=== PATIENT | male | born 1985 | race Caucasian/White ===

== ENCOUNTER 2020-10-14 12:35 | Emergency (ER) | payer OTHER ==
[2020-10-14] MEDS ORDERED: NORMAL SALINE 1000 ML 1,000 ML IV ONE ×2 (12:58→15:30)
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
[2020-10-14 13:30] LABS: ABSOLUTE BASOPHILS # (AUTO) 0.1 10^3/uL (0.0-0.2); ABSOLUTE EOSINOPHILS # (AUTO) 0.1 10^3/uL (0.0-0.6); ABSOLUTE LYMPHOCYTES (AUTO) 1.1 10^3/uL (0.5-4.7); ABSOLUTE NEUT (AUTO) 10.8 10^3/uL (1.7-8.2); BASOPHILS % (AUTO) 0.5 % (0-2); EOSINOPHILS % (AUTO) 0.4 % (0-6); HEMATOCRIT 44.4 % (37.9-51.0); HEMOGLOBIN 15.4 g/dL (13.5-17.0); LYMPHOCYTES % (AUTO) 8.7 % (13-45); MEAN CORPUSCULAR HEMOGLOBIN 34.5 pg (27.0-33.4); MEAN CORPUSCULAR HGB CONC 34.7 g/dL (32.0-36.0); MEAN CORPUSCULAR VOLUME 99 fl (80-97); MONOCYTES % (AUTO) 7.7 % (3-13); PLATELET COUNT 307 10^3/uL (150-450); RED BLOOD COUNT 4.47 10^6/uL (4.35-5.55); RED CELL DISTRIBUTION WIDTH 13.4 % (11.5-14.0); SEGMENTED NEUTROPHILS % (AUTO) 82.7 % (42-78); TOTAL CELLS COUNTED % (AUTO) 100 %; WHITE BLOOD COUNT 13.1 10^3/uL (4.0-10.5)
[2020-10-14 13:39] LABS: APPEARANCE,URINE SLIGHTLY-CLOUDY; BILIRUBIN,URINE NEGATIVE (NEGATIVE); COLOR,URINE YELLOW; GLUCOSE, URINE NEGATIVE (NEGATIVE); KETONES,URINE 20 mg/dL (NEGATIVE); LEUKOCYTE ESTERASE,URINE NEGATIVE (NEGATIVE); NITRITE,URINE NEGATIVE (NEGATIVE); PROTEIN,URINE 100 mg/dL (NEGATIVE); URINE SPECIFIC GRAVITY 1.018; UROBILINOGEN,URINE NEGATIVE mg/dL (<2.0)
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
[2020-10-14 13:58] LABS: URINE AMPHETAMINES SCREEN NEGATIVE; URINE BARBITURATES SCREEN NEGATIVE; URINE BENZODIAZEPINES SCREEN NEGATIVE; URINE COCAINE SCREEN NEGATIVE; URINE METHADONE SCREEN NEGATIVE; URINE PHENCYCLIDINE SCREEN NEGATIVE
[2020-10-14 14:01] LABS: ALBUMIN 5.2 g/dL (3.5-5.0); ALKALINE PHOSPHATASE 248 U/L (38-126); ASPARTATE AMINO TRANSFERASE 310 U/L (17-59); BILIRUBIN,DIRECT 0.4 mg/dL (0.0-0.4); BILIRUBIN,TOTAL 1.5 mg/dL (0.2-1.3); BLOOD UREA NITROGEN 10 mg/dL (7-20); GLUCOSE 153 mg/dL (75-110); POTASSIUM 3.9 mmol/L (3.6-5.0); TOTAL PROTEIN 8.5 g/dL (6.3-8.2)
[2020-10-14 14:05] LABS: URINE MARIJUANA (THC) SCREEN UNCONFIRMED POSITIVE
[2020-10-14 14:06] LABS: CARBON DIOXIDE 15 mmol/L (22-30); CHLORIDE 100 mmol/L (98-107)
[2020-10-14 14:12] LABS: ALCOHOL < 10 mg/dL (NONE DETECTED); ANION GAP 23 (5-19)
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
[2020-10-14 16:35] LABS: ARTERIAL BLOOD BASE EXCESS 0 mmol/L; ARTERIAL BLOOD FIO2 4L; ARTERIAL BLOOD H2CO3 1.13 mmol/L (1.05-1.35); ARTERIAL BLOOD HCO3 24.1 mmol/L (20-24); ARTERIAL BLOOD O2 SATURATION 98.6 % (94-98); ARTERIAL BLOOD PCO2 37.5 mmHg (35-45); ARTERIAL BLOOD PH 7.43 (7.35-7.45); ARTERIAL BLOOD PO2 126.2 mmHg (80-100); ARTERIAL BLOOD TOTAL CO2 25.2 mmol/L (23-27)
[2020-10-14 19:21] VITALS: BP 174/127
--- NOTE | 2020-10-14 21:02 | EKG REPORT ---
SEVERITY:- ABNORMAL ECG - SINUS TACHYCARDIA LEFT VENTRICULAR HYPERTROPHY ANTERIOR INFARCT, AGE INDETERMINATE : Confirmed by: Jame Prasad MD 14-Oct-2020 21:02:34
--- NOTE | 2020-10-14 21:03 | EKG REPORT ---
SEVERITY:- ABNORMAL ECG - SINUS TACHYCARDIA PROBABLE LEFT ATRIAL ABNORMALITY BORDERLINE LEFT AXIS DEVIATION ANTERIOR INFARCT, AGE INDETERMINATE : Confirmed by: Jame Prasad MD 14-Oct-2020 21:02:55
== END 2020-10-14 17:20 | disposition home or self-care (01) ==
LOC: EDBD → ER 12:35
DX: R00.0 Tachycardia, unspecified (principal); R61 Generalized hyperhidrosis; R03.0 Elevated blood-pressure reading, without diagnosis of hypertension; R74.8 Abnormal levels of other serum enzymes; R56.9 Unspecified convulsions; V43.52XA Car driver injured in collision with other type car in traffic accident, initial encounter; F17.200 Nicotine dependence, unspecified, uncomplicated; Z20.828 Contact with and (suspected) exposure to other viral communicable diseases
CPT/HCPCS: 93005; 99285; 96360; 96361; 86900; 86901; 36415; 86850; 80307 ×2; 82803; 83735; 85025; 87635; 80053; 81001; 84484; 70450; 71275; 72125; 74177; 93010; J7030; C9803

== ENCOUNTER 2020-11-11 18:14 | Observation (INO) | payer SELFPAY ==
[2020-11-11 18:57] LABS: HEMATOCRIT 45.6 % (37.9-51.0); HEMOGLOBIN 15.7 g/dL (13.5-17.0); MEAN CORPUSCULAR HEMOGLOBIN 33.4 pg (27.0-33.4); MEAN CORPUSCULAR HGB CONC 34.4 g/dL (32.0-36.0); MEAN CORPUSCULAR VOLUME 97 fl (80-97); WHITE BLOOD COUNT 18.2 10^3/uL (4.0-10.5)
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
[2020-11-11 19:19] LABS: ALKALINE PHOSPHATASE 188 U/L (38-126); ANION GAP 11 (5-19); ASPARTATE AMINO TRANSFERASE 131 U/L (17-59); BILIRUBIN,DIRECT 0.5 mg/dL (0.0-0.4); BILIRUBIN,TOTAL 1.5 mg/dL (0.2-1.3); BLOOD UREA NITROGEN 6 mg/dL (7-20); CALCIUM 10.1 mg/dL (8.4-10.2); CARBON DIOXIDE 24 mmol/L (22-30); CHLORIDE 100 mmol/L (98-107); GLUCOSE 124 mg/dL (75-110); POTASSIUM 4.4 mmol/L (3.6-5.0)
[2020-11-11 19:21] LABS: ABSOLUTE LYMPHOCYTES# (MANUAL) 0.2 10^3/uL (0.5-4.7); ABSOLUTE MONOCYTES # (MANUAL) 1.5 10^3/uL (0.1-1.4); BAND NEUTROPHILS % (MANUAL) 1 % (3-5); BASOPHILS % (MANUAL) 1 % (0-2); EOSINOPHILS % (MANUAL) 0 % (0-6); LYMPHOCYTES % (MANUAL) 1 % (13-45); MONOCYTES % (MANUAL) 8 % (3-13); SEGMENTED NEUTROPHILS % (MAN) 89 % (42-78); TOTAL CELLS COUNTED 100
[2020-11-11 19:22] LABS: ALCOHOL < 10 mg/dL (NONE DETECTED); PLATELET CLUMPS PRESENT; PLATELET COMMENT ADEQUATE; TOXIC GRANULATION SLIGHT
[2020-11-11 19:23] LABS: PLATELET COUNT 316 10^3/uL (150-450)
[2020-11-11] MEDS ORDERED: ONDANSETRON HCL INJ/PF 4 MG/2 ML SDV IV ONE (20:52)
[2020-11-11] MEDS ORDERED: LORAZEPAM INJ 2 MG/1 ML VIAL IV ONE ×2 (20:59→21:20)
[2020-11-11] MEDS ORDERED: LEVETIRACETAM 1000 MG/NACL-ISO 1,000 MG/100 ML RTUPB IV ONE ×2 (21:11→22:21)
--- NOTE | 2020-11-11 21:12 | RADIOLOGY REPORT (SQ) ---
EXAM DESCRIPTION: MR BRAIN WITHOUT IV CONTRAST COMPLETED DATE/TME: 11/11/2020 20:47 CLINICAL HISTORY: 35 years, Male, new seizures, eval structual abnormality EXAM DESCRIPTION: MRI HEAD WITHOUT CLINICAL HISTORY: new seizures, eval structual abnormality COMPARISON: None TECHNIQUE: Multiplanar images of the brain were obtained without the administration of intravenous contrast FINDINGS: Motion significantly limits detail on multiple sequences. There is no evidence of acute ischemia. There is no evidence of acute mass, mass effect, midline shift or hemorrhage. No focal abnormal extra-axial fluid collection is seen. The ventricles, basal cisterns and extra-axial fluid spaces are normal in size and configuration. Brain parenchymal signal is normal. IMPRESSION: No acute abnormalities.
--- NOTE | 2020-11-11 21:20 | RADIOLOGY REPORT (SQ) ---
EXAM DESCRIPTION: XR CHEST 2 VIEWS COMPLETED DATE/TME: 11/11/2020 20:51 CLINICAL HISTORY: 35 years, Male, eval consoldation COMPARISON: CT chest 10/14/2020 TECHNIQUE: AP and lateral views. FINDINGS: Mild congenital megaly. Mild enlargement of the main pulmonary artery. No suspicious pleural disease. There is a right perihilar and suprahilar infiltrate that was not present on CT from one month ago.
--- NOTE | 2020-11-11 21:52 | EKG REPORT ---
SEVERITY:- BORDERLINE ECG - SINUS TACHYCARDIA BORDERLINE LEFT AXIS DEVIATION LA ABNORMALITY : Confirmed by: Jame Prasad MD 11-Nov-2020 21:51:36
[2020-11-11] MEDS ORDERED: LEVETIRACETAM 1000 MG/NACL-ISO 1,000 MG/100 ML RTUPB IV SCH (22:00)
[2020-11-12] MEDS ORDERED: THIAMINE HCL 100 MG in NORMAL SALINE 50 ML IV ONE (00:15)
[2020-11-12] MEDS ORDERED: THIAMINE HCL INJ 200 MG/2 ML VIAL ONE (00:53)
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
[2020-11-12 02:31] LABS: HEMATOCRIT 44.6 % (37.9-51.0); HEMOGLOBIN 15.4 g/dL (13.5-17.0); MEAN CORPUSCULAR HEMOGLOBIN 33.8 pg (27.0-33.4); MEAN CORPUSCULAR HGB CONC 34.5 g/dL (32.0-36.0); MEAN CORPUSCULAR VOLUME 98 fl (80-97); PLATELET COUNT 299 10^3/uL (150-450); RED BLOOD COUNT 4.56 10^6/uL (4.35-5.55); RED CELL DISTRIBUTION WIDTH 13.2 % (11.5-14.0); WHITE BLOOD COUNT 14.1 10^3/uL (4.0-10.5)
[2020-11-12 02:33] LABS: ALBUMIN 5.1 g/dL (3.5-5.0); ALKALINE PHOSPHATASE 152 U/L (38-126); ANION GAP 12 (5-19); ASPARTATE AMINO TRANSFERASE 111 U/L (17-59); BILIRUBIN,DIRECT 0.5 mg/dL (0.0-0.4); BILIRUBIN,TOTAL 1.8 mg/dL (0.2-1.3); BLOOD UREA NITROGEN 6 mg/dL (7-20); CALCIUM 10.4 mg/dL (8.4-10.2); CARBON DIOXIDE 24 mmol/L (22-30); CHLORIDE 102 mmol/L (98-107); CREATINE KINASE 832 U/L (55-170); GLUCOSE 114 mg/dL (75-110); POTASSIUM 3.9 mmol/L (3.6-5.0); TOTAL PROTEIN 7.9 g/dL (6.3-8.2)
[2020-11-12 02:49] LABS: ABSOLUTE LYMPHOCYTES# (MANUAL) 0.6 10^3/uL (0.5-4.7); ABSOLUTE MONOCYTES # (MANUAL) 1.8 10^3/uL (0.1-1.4); BAND NEUTROPHILS % (MANUAL) 1 % (3-5); BASOPHILS % (MANUAL) 0 % (0-2); EOSINOPHILS % (MANUAL) 0 % (0-6); LYMPHOCYTES % (MANUAL) 3 % (13-45); MONOCYTES % (MANUAL) 13 % (3-13); SEGMENTED NEUTROPHILS % (MAN) 82 % (42-78); TOTAL CELLS COUNTED 100
[2020-11-12 02:50] LABS: PLATELET COMMENT ADEQUATE; RBC MORPHOLOGY COMMENT NORMO-CYTIC/CHROMIC; TOXIC VACUOLATION PRESENT
[2020-11-12 03:56] LABS: APPEARANCE,URINE CLEAR; BILIRUBIN,URINE NEGATIVE (NEGATIVE); COLOR,URINE YELLOW; GLUCOSE, URINE NEGATIVE (NEGATIVE); KETONES,URINE TRACE mg/dL (NEGATIVE); LEUKOCYTE ESTERASE,URINE NEGATIVE (NEGATIVE); NITRITE,URINE NEGATIVE (NEGATIVE); PROTEIN,URINE NEGATIVE (NEGATIVE); URINE SPECIFIC GRAVITY 1.011; UROBILINOGEN,URINE NEGATIVE mg/dL (<2.0)
[2020-11-12 04:01] LABS: URINE AMPHETAMINES SCREEN NEGATIVE; URINE BARBITURATES SCREEN NEGATIVE; URINE BENZODIAZEPINES SCREEN NEGATIVE; URINE COCAINE SCREEN NEGATIVE; URINE METHADONE SCREEN NEGATIVE; URINE PHENCYCLIDINE SCREEN NEGATIVE
[2020-11-12 04:14] LABS: URINE MARIJUANA (THC) SCREEN UNCONFIRMED POSITIVE
[2020-11-12] MEDS ORDERED: LORAZEPAM INJ 2 MG/1 ML VIAL IV PRN (05:37)
[2020-11-12] MEDS: LEVETIRACETAM 500 MG TABLET PO SCH ×2 (10:33→22:08)
[2020-11-12] MEDS: THIAMINE HCL 100 MG in NORMAL SALINE 50 ML IV SCH (10:34)
--- NOTE | 2020-11-12 15:29 | NEURO WORKBENCH EEG REPORT ---
EEG Report Patient: Pillo Colunga ID: [id number] Referring Doctor: Phani Paul DO DOS: 11/12/2020 Medications: Keppra, Thiamine History This is a 35 year old right handed male with a history of an episode of headache with nausea and vomiting. He left work to take a nap and 15 minutes later his found him drooling, slow to respond, and confused. This EEG was requested for possible new seizure. EEG Interpretation This EEG was recorded in the awake, drowsy, and sleep states. The awake EEG is characterized by a fairly well-organized background but without a well-developed posterior dominant rhythm. The remainder of the background was characterized by a combination of alpha with prominent beta frequencies. Drowsiness was characterized by slowing of the background rhythms. Vertex waves and sleep spindles were seen in the midline head regions. Photic stimulation resulted in no significant changes. Hyperventilation resulted in generalized slowing of the background. There were occasional sharp waves on the left, most prominent in the left frontal and frontal-central or frontal-temporal regions with a field to the right. These sharp waves were most noted following hyperventilation. The EKG showed a regular rhythm ~100bpm. EEG Classification * Sharp waves, left, frontal-central, frontal-temporal * Prominent beta * EKG tachycardia EEG Impression This EEG is abnormal. There was prominent beta which may be seen with some medications (e.g. benzodiazepines). The sharp waves are suggestive of an epileptiform focus on the left. However, there was a field to the right and these were most noted following hyperventilation so an idiopathic generalized epilepsy may also be considered as fragments on the EEG. Correlation with neuroimaging is recommended as well as clinically. Note the EKG showed a tachycardia. INTERPRETING NEUROLOGIST: Pauline Demarco MD, FRCPC Board Certified in Neurology, with special qualification in Child Neurology, and in Clinical Neurophysiology [facility]
[2020-11-12] MEDS: ACETAMINOPHEN 325 MG TABLET PO PRN ×2 (18:26→22:08)
--- NOTE | 2020-11-12 18:30 | Progress Note ---
Provider Note Provider Note: Patient seen on morning rounds. He is resting in bed and awakens easily when entered the room. His vital signs are stable outside of noted elevated heart rate. He complains of generalized body aches and confirms that he does not recall seizure activity from yesterday or associated postictal state. Patient's is present at the time of evaluation and walks me through events that occurred yesterday. Patient has been seizure-free since receiving loading dose Keppra and Keppra 750 mg thus far today. EEG noted to be abnormal. Prominent beta waves consistent with benzodiazepines necessarily expected as he was needed with diazepam. 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 This was discussed with Dr. Juárez, EEG as evidence to continue Keppra 750 mg twice daily. We will monitor him over night to ensure no seizure activity. If without seizure activity we will discharge him home with a prescription for 750 mg Keppra twice daily, and outpatient follow-up with neurology. Patient with history of extensive alcohol use, typically consumes 6 beers nightly. Discussed this with patient encouraged on cessation of alcohol use. He is understanding. CIWA scores have been 0 and has not required Ativan. Denies history of alcohol withdrawals previously. We will continue to monitor with CIWA score On exam there was a noted petechial rash on his chest and shoulders, reports onset of the rash yesterday prior to your seizure activity. Denies any associated itching, warmth or edema. Denies tick or spider bite denies exposures or change in daily fragrances. Nontender to the touch. Without associated edema erythema or warmth. Without associated lymphadenopathy or edema/erythema in throat. We will continue to monitor at this time, will consider dermatology consult/outpatient dermatology follow-up Will monitor patient overnight and will likely discharge home tomorrow with Keppra 750 mg twice daily with close neurology outpatient follow-up.
[2020-11-13 04:41] LABS: HEMATOCRIT 45.3 % (37.9-51.0); HEMOGLOBIN 15.9 g/dL (13.5-17.0); MEAN CORPUSCULAR HEMOGLOBIN 34.1 pg (27.0-33.4); MEAN CORPUSCULAR VOLUME 97 fl (80-97); PLATELET COUNT 241 10^3/uL (150-450); RED BLOOD COUNT 4.65 10^6/uL (4.35-5.55); RED CELL DISTRIBUTION WIDTH 13.1 % (11.5-14.0); WHITE BLOOD COUNT 8.1 10^3/uL (4.0-10.5)
[2020-11-13 05:04] LABS: ANION GAP 11 (5-19); BLOOD UREA NITROGEN 10 mg/dL (7-20); CALCIUM 9.5 mg/dL (8.4-10.2); CARBON DIOXIDE 25 mmol/L (22-30); CHLORIDE 101 mmol/L (98-107); GLUCOSE 88 mg/dL (75-110); POTASSIUM 3.7 mmol/L (3.6-5.0)
[2020-11-13] MEDS: ACETAMINOPHEN 325 MG TABLET PO PRN ×2 (05:08→09:10)
[2020-11-13] MEDS: THIAMINE HCL 100 MG in NORMAL SALINE 50 ML IV SCH (09:05)
[2020-11-13] MEDS: LEVETIRACETAM 500 MG TABLET PO SCH (09:06)
[2020-11-13 10:03] VITALS: BP 130/90
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
== END 2020-11-13 10:24 | disposition home or self-care (01) ==
LOC: ER 18:14 → EH 22:44 → 5 11-12 01:54
PROVIDERS: ADMIT Internal Medicine; ATTEND Physician Assistant
DX: R56.9 Unspecified convulsions (principal); R21 Rash and other nonspecific skin eruption; F10.10 Alcohol abuse, uncomplicated; D72.829 Elevated white blood cell count, unspecified; R74.01 Elevation of levels of liver transaminase levels; R00.0 Tachycardia, unspecified; Z20.822 Contact with and (suspected) exposure to COVID-19
CPT/HCPCS: 95819 ×2; 93005; 96376; 99285; 96374; 96375; 36415 ×3; 87040 ×2; 80307 ×2; 82140; 82550; 83735 ×2; 84443; 85025 ×2; 85027; 0202U; 80048; 80053 ×2; 81001; 83036; 70551; 71046; 93010; G0378 ×3; J2060; J3411 ×2; J2405; J1953